=== PATIENT | female | born 1965 | race Caucasian/White ===

== ENCOUNTER 2023-07-29 17:22 | Inpatient (IN) | payer OTHER, SELFPAY ==
[2023-07-29] VITALS (10 sets, daily range): BP systolic 122–150; BP diastolic 84–88; PULSE 84–95; RESP 16–22; TEMP 36.9–38.8; O2SAT 94–100; BMI 22.3
--- NOTE | ~2023-07-29 | XR_ITS ---
EXAMINATION: XR chest 2V DATE: 07/30/2023 07:43 INDICATION: Pneumonia with cough and midsternal chest pain TECHNIQUE: PA and lateral views of the chest were obtained. COMPARISON: Chest radiograph dated 07/29/2023 FINDINGS: No significant change in patchy airspace opacities in the bilateral lower lungs. Very small right ple ural effusion. No pneumothorax. The cardiomediastinal silhouette is normal. Bilateral breast implants . IMPRESSION: 1. Persistent patchy airspace opacities in the bilateral lower lungs consistent with pneumonia. 2. Very small right pleural effusion. Reviewed, dictated and finalized at location [facility] [employer]
--- NOTE | 2023-07-29 17:51 | ECG_ITS ---
Measurements Intervals [place] Rate: 96 P: 78 GA: 120 QRS: 73 QRSD: 93 T: 72 QT: 314 QTc: 399 Interpretive Statements SINUS RHYTHM RSR' IN V1 OR V2, PROBABLY NORMAL VARIANT DELAYED PRECORDIAL R/S TRANSITION BASELINE ARTIFACT- I, II, III, AVR, AVL, AVF, V4 BORDERLINE ECG NO PREVIOUS ECG AVAILABLE FOR COMPARISON Electronically Signed On 07-29-2023 19:14:55 EMERGENCY ROOM TECH by Alon Easton D.O.
[2023-07-29] MEDS: IPRATROPIUM 0.5 MG/ALBUTEROL SULFATE 2.5 MG AMPUL.NEB 3 ML INHALATION (17:59)
[2023-07-29 18:24] LABS: Basophils Absolute Auto 0.07 K/mm3 (0.00-0.10); Basophils Percent Auto 0.4 % (0.0-1.0); Eosinophils Absolute Auto 0.18 K/mm3 (0.02-0.50); Eosinophils Percent Auto 0.9 % (1.0-6.0); Hematocrit 40.3 % (35.0-49.0); Hemoglobin 13.2 g/dL (12.0-15.0); Immature Granulocyte Absolute 0.44 K/mm3 (0.00-0.00); Immature Granulocyte Percent A 2.2 % (0.0-0.0); Lymphocytes Absolute Auto 1.96 K/mm3 (1.10-4.50); Lymphocytes Percent Auto 9.8 % (18.0-42.0); Mean Corpuscular HGB Conc 32.8 g/dL (32.0-36.0); Mean Corpuscular Hemoglobin 31.4 pg (27.0-31.0); Monocytes Absolute Auto 1.13 K/mm3 (0.10-0.90); Monocytes Percent Auto 5.7 % (2.0-11.0); Neutrophils Absolute Auto 16.1 K/mm3 (1.7-7.2); Platelet Count Result 336 K/mm3 (150-420); Red Cell Distribution Width 11.9 % (11.6-14.4); White Blood Count 19.9 K/mm3 (4.8-10.8)
[2023-07-29] MEDS: SODIUM CHLORIDE 0.9% IV 1,000 ML 999 ML IV CONT (18:36)
[2023-07-29] MEDS: ACETAMINOPHEN 500 MG TABLET 1000 MG PO (18:36)
[2023-07-29 18:41] LABS: Partial Thromboplastin Time 32.9 SEC (23.90-30.70); Prothrombin Time 10.9 Seconds (9.50-12.10)
[2023-07-29 18:44] LABS: Alanine Aminotransferase 62 U/L (14-59); Alkaline Phosphatase 96 U/L (46-116); Anion Gap 12 mmol/L (8-16); Aspartate Amino Transferase 36 U/L (15-37); Bilirubin,Total 0.4 mg/dL (0.00-1.00); Blood Urea Nitrogen 18 mg/dL (7-18); Carbon Dioxide 26 mmol/L (21-32); Chloride 98 mmol/L (98-108); Estimated CRCL calculation 63 ml/min; Estimated Glomerular Filt Rate > 60; Glucose 104 mg/dL (70-99); Magnesium 1.8 mg/dL (1.8-2.4); Osmolality Calculated 283 mOsm/kg (285-295); Potassium 3.7 mmol/L (3.5-5.1); Sodium 136 mmol/L (136-145); Total Protein 7.8 g/dL (6.4-8.2)
[2023-07-29 18:49] LABS: Lactic Acid Reflex 1.9 mmol/L (0.4-2.0)
[2023-07-29 19:02] LABS: CRP > 25.0 mg/dL (0.0-0.9)
--- NOTE | 2023-07-29 19:02 | ED.URI ---
HPI - URI/Sore Throat General Chief Complaint: Upper Respiratory Infection Stated Complaint: pneumonia Time Seen by Provider: 07/29/23 17:42 Source: patient and family Mode of arrival: ambulatory Limitations: no limitations History of Present Illness HPI Narrative: this is a 58-year-old with history of hypothyroidism and asthma that was seen earlier today by her primary and had a chest x-ray performed which showed patchy infiltrates consistent with pneumonia patient, has been having cough congestion shortness breath does have inhalers at home but had no relief from her inhalers and was told by her primary that she should present herself to the emergency department. Patient has congestion cough and shortness of breath with currently no fevers, no nausea vomiting no chest pain no abdominal pain no flank pain no dysuria. MD elicited complaint: fever and cough Onset (ago): hour(s) Consistency: constant Severity: severe Related Data Allergies Allergy/AdvReac Type Severity Reaction Status Date / Time No Known Allergies Allergy Unverified 07/29/23 17:38 Review of Systems Review of Systems: All systems reviewed & are unremarkable except as noted in HPI and below PMFSH Past Medical History Medical History Thyroid disease Surgical History Surgical History H/O: hysterectomy Family History Family History Father Hypertension Social History Social History Smoking status: Former smoker Tobacco type: cigarettes Alcohol intake: current Alcohol use details: social Substance use: never Substance use type: does not use Lack of Transportation: No Lack of Food: Never True Current Housing: I Have Housing Concerned About Future Housing: No Difficulty Paying Gas/Electric Bills: No Difficulty Paying for Meds: No Currently Unemployed: No Difficulty w/ Childcare or Family Care: No Living arrangements: with family Occupation/Education: occupation Gender identity (if verbalized by the patient): Female Exam Const: General: ill appearing Nutritional Appearance: thin Orientation/consciousness: patient oriented x3 Limitations: no limitations HENMT: Head: normal to inspection Eyes: Conjunctivae: conjunctivae normal Pupils: Equal, round and reactive pupils present Neck: Neck: normal visual inspection, no lymphadenopathy and no meningeal signs Chest: Chest palpation & inspection: normal inspection of the chest Resp: Effort & Inspection: normal respiratory effort Auscultation: rhonchi and diminished lung sounds Cardio: Rate: regular rate Rhythm: regular rhythm GI: GI Palp: Yes Soft to palpation Auscultation: normal bowel sounds Skin: General skin exam: normal color Rashes: no rashes Psych: Mental Status: mental status grossly normal Course Course Emergency Course: Patient had x-ray performed earlier today consistent with pneumonia blood work showed a elevated white blood cell count, patient received a DuoNeb, and started on ceftriaxone and azithromycin. Patient is satting at 100% on room air. Vital Signs Vital signs: Vital Signs Temperature 36.9 C 07/29/23 17:30 Pulse Rate 84 07/29/23 17:30 Respiratory Rate 16 07/29/23 17:30 Blood Pressure 150/86 H 07/29/23 17:30 Pulse Oximetry 100 07/29/23 17:30 Oxygen Delivery Room Air 07/29/23 17:30 Temperature 36.9 C 07/29/23 17:30 Pulse Rate 88 07/29/23 18:08 Respiratory Rate 22 H 07/29/23 18:08 Blood Pressure 150/86 H 07/29/23 17:30 Pulse Oximetry 100 07/29/23 18:08 Oxygen Delivery Room Air 07/29/23 17:30 MDM - URI/Sore Throat Lab Data 07/29/23 18:09 07/29/23 18:09 Labs: Lab Results 07/29/23 Range/Units 18:09 WBC 19.9 H (4.8-10.8)
[2023-07-29 19:13] LABS: Influenza A QL RT-PCR Negative (Negative); Influenza B QL RT-PCR Negative (Negative); RSV RNA, RT-PCR Positive (Negative); SARS-CoV-2 RNA PCR Negative (Negative)
[2023-07-29] MEDS: AZITHROMYCIN 500 MG/NS 250 ML 500 MG/250 ML BAG 250 MG IVPB (19:18)
[2023-07-29] MEDS: MORPHINE SULFATE (*CRX) 2 MG/ML INJ IV PUSH (19:41)
--- NOTE | 2023-07-29 20:08 | PC.NURSE ---
Pt resting, lights dimmed, VSS. Pt to go to Rm 209.
[2023-07-29] MEDS: SODIUM CHLORIDE 0.9% IV 1,000 ML 100 ML IV CONT (21:09)
[2023-07-29] MEDS: BENZONATATE 100 MG CAPSULE PO (22:19)
--- NOTE | 2023-07-29 23:53 | ADMGEN ---
This patient, Renee Noble, was admitted to 2nd Floor Room 209-1 at 2100. Patient/family oriented to hospital policies and general routines including ID bracelet, bed and alarms, pain management, procedures, bathroom and other care routines, personal items, smoking policy, room service/diet, and visiting hours. Information on how to activate the Rapid Response Team has been discussed. Patient/Family are encouraged to report perceived risks to care and to ask questions if they do not understand what they are told or what they should do.
[2023-07-30] VITALS (10 sets, daily range): BP systolic 135–153; BP diastolic 83–99; PULSE 76–101; RESP 16–22; TEMP 36.5–37.4; O2SAT 88–99
[2023-07-30] MEDS: MORPHINE SULFATE (*CRX) 2 MG/ML INJ IV PUSH (00:15)
[2023-07-30] MEDS: IPRATROPIUM 0.5 MG/ALBUTEROL SULFATE 2.5 MG AMPUL.NEB 3 ML INHALATION ×3 (03:07→18:39)
[2023-07-30] MEDS: ACETAMINOPHEN 325 MG TABLET 650 MG PO ×3 (03:19→21:26)
[2023-07-30 05:48] LABS: Hemoglobin 11.4 g/dL (12.0-15.0); Mean Corpuscular HGB Conc 32.6 g/dL (32.0-36.0); Mean Corpuscular Hemoglobin 31.1 pg (27.0-31.0); Mean Corpuscular Volume 95.4 fL (78.0-102.0); Mean Platelet Volume 9.1 fl (9.2-11.8); Platelet Count Result 275 K/mm3 (150-420); Red Blood Count 3.67 M/mm3 (4.20-5.40); Red Cell Distribution Width 11.9 % (11.6-14.4)
[2023-07-30 06:05] LABS: Alanine Aminotransferase 40 U/L (14-59); Albumin Level 2.3 g/dL (3.4-5.0); Alkaline Phosphatase 71 U/L (46-116); Anion Gap 10 mmol/L (8-16); Aspartate Amino Transferase 20 U/L (15-37); Bilirubin,Total 0.4 mg/dL (0.00-1.00); Blood Urea Nitrogen 9 mg/dL (7-18); Calcium 8.3 mg/dL (8.5-10.1); Carbon Dioxide 25 mmol/L (21-32); Chloride 102 mmol/L (98-108); Estimated CRCL calculation 74 ml/min; Estimated Glomerular Filt Rate > 60; Glucose 97 mg/dL (70-99); Osmolality Calculated 282 mOsm/kg (285-295); Potassium 3.3 mmol/L (3.5-5.1); Sodium 137 mmol/L (136-145); Total Protein 6.3 g/dL (6.4-8.2)
[2023-07-30 06:06] LABS: CRP 24.2 mg/dL (0.0-0.9)
[2023-07-30 06:12] LABS: Band Neutrophils Percent 0 % (0-6); Eosinophils Absolute Manual 0.21 K/mm3 (0.02-0.5); Eosinophils Percent Manual 1 % (1-6); Lymphocytes Percent Manual 10 % (18-44); Monocytes Absolute Manual 0.84 K/mm3 (0.1-0.90); Monocytes Percent Manual 4 % (3-9); Neutrophils Absolute Manual 17.85 K/mm3 (1.7-7.2); Neutrophils Percent Manual 85 % (46-73); Platelet Estimate Adequate (Adequate); Total Cells Counted 100
[2023-07-30] MEDS: SODIUM CHLORIDE 0.9% IV 1,000 ML 100 ML IV CONT ×2 (07:34→18:21)
--- NOTE | 2023-07-30 08:31 | PM.IMHP ---
H&P: HPI History of Present Illness Date/Time: 07/30/23 08:31 Chief Complaint: Pneumonia, Bronchitis ,RSV Narrative: This is a 58 year old female that has been sick since July 19 she was diagnosis with RSV and continued to not improve. Patient has been to the emergency room and order medication steroids and cough medication with antibiotic and did not improve. She was seen by her primary care provider and she continued to not improve. Patient has a past medical history Asthma, a ileostomy, COPD, Treatment that has been initiated is IV antibiotic, IV Steroids, cough medication and breathing treatment, We have ordered sputum culture with routine.Patient was WBC is 21 K we will continue to monitor. Travon thas been started on oxygen and she continues to go into coughing episodes and she is mentally and physically exhausted. Patient complains of rib pain due to the coughing spells. Patient labs we will continue to monitor and treat electrolyte imbalances. Review of Systems Review of Systems: coughing, rib pain, hypoxia All systems reviewed & are unremarkable except as noted in HPI and below PMFSH Past Medical History Medical History (Updated 07/31/23 @ 13:45 by Austen Rosas APRN) Asthma Ileostomy present Thyroid disease Surgical History Surgical History H/O: hysterectomy Family History Family History (Updated 07/29/23 @ 21:41 by Cathi Flores RN) Father No problems noted. Mother Hypertension Social History Social History Smoking packs per day: 0.75 Smoking cigarettes per day: 15.0 Years smoked: 7 Smoking pack-years: 5.25 Smoking status: Former smoker Tobacco type: cigarettes Alcohol intake: current Drinks per week: 1 Alcohol use details: social Substance use: never Substance use type: does not use Do You Feel Safe in your Home?: Yes Lack of Transportation: No Lack of Food: Never True Current Housing: I Have Housing Concerned About Future Housing: No Difficulty Paying Gas/Electric Bills: No Difficulty Paying for Meds: No Currently Unemployed: No Education: High School Diploma/GED Difficulty w/ Childcare or Family Care: No Living arrangements: with family Occupation/Education: occupation Gender identity (if verbalized by the patient): Female Spiritual care concerns: No Meds Home Medications and Allergies Home Medications Medication Instructions Recorded Confirmed Type thyroid (pork) 15 mg tablet 15 mg PO DAILY #90 tabs 05/08/22 07/29/23 Rx ([place] Thyroid) azithromycin 250 mg tablet 250 mg PO DAILY #4 tabs 08/02/23 Rx (Zithromax) benzonatate 100 mg capsule 200 mg PO TID PRN cough #30 caps 08/02/23 Rx guaifenesin 100 mg/5 mL oral liquid 100 mg (5 mL) PO Q4H PRN cough 08/02/23 Rx #100 mL ipratropium 0.5 mg-albuterol 3 mg 3 ml inhalation Q6HRT PRN wheezing 08/02/23 Rx (2.5 mg base)/3 mL nebulization #90 mL soln prednisone 10 mg tablet 10 mg PO DIRECTED #39 tabs 08/02/23 Rx Allergies Allergy/AdvReac Type Severity Reaction Status Date / Time No Known Allergies Allergy Unverified 07/29/23 17:38 Vital Signs Vital Signs - 24 hr 07/29/23 17:30 07/29/23 18:00 07/29/23 18:08 Temperature 98.5 F Pulse Rate 84 86 88 Respiratory Rate 16 18 22 H Blood Pressure 150/86 H Pulse Oximetry 100 96 100 Oxygen Delivery Room Air 07/29/23 19:24 07/29/23 19:00 07/29/23 19:43 Temperature 101.9 F H Pulse Rate 95 95 Respiratory Rate 22 H 20 Blood Pressure 138/87 141/85 H Pulse Oximetry 96 96 96 Oxygen Delivery Room Air Room Air Room Air 07/29/23 20:08 07/29/23 20:45 07/29/23 21:00 Temperature 101 F H Pulse Rate 85 92 90 Respiratory Rate 20 18 16 Blood Pressure 126/85 122/84 Pulse Oximetry 95 94 94 Oxygen Delivery Room Air Room Air Room Air 07/29/23 21:30
[2023-07-30] MEDS: BENZONATATE 100 MG CAPSULE PO ×3 (08:37→17:15)
[2023-07-30] MEDS: IPRATROPIUM 0.5 MG/ALBUTEROL SULFATE 2.5 MG AMPUL.NEB 3 ML (08:58)
[2023-07-30] MEDS: KETOROLAC 30 MG/ML VIAL (*BKC) IV PUSH ×2 (09:05→15:25)
[2023-07-30] MEDS: methylPREDNISolone SOD SUCC 125 MG VIAL 60 MG IV PUSH (09:05)
[2023-07-30] MEDS: guaiFENesin/CODEINE 100/10 MG 5 ML SYRUP 10 ML PO ×2 (15:27→21:36)
[2023-07-30] MEDS: AZITHROMYCIN 500 MG/NS 250 ML 500 MG/250 ML BAG 250 MG IVPB (18:21)
[2023-07-31] VITALS (9 sets, daily range): BP systolic 141–149; BP diastolic 90–94; PULSE 70–86; RESP 16–99; TEMP 36.3–36.8; O2SAT 95–99
[2023-07-31] MEDS: IPRATROPIUM 0.5 MG/ALBUTEROL SULFATE 2.5 MG AMPUL.NEB 3 ML INHALATION ×4 (00:09→18:39)
[2023-07-31] MEDS: guaiFENesin/CODEINE 100/10 MG 5 ML SYRUP 10 ML PO ×2 (05:16→09:46)
[2023-07-31] MEDS: SODIUM CHLORIDE 0.9% IV 1,000 ML 100 ML IV CONT (05:17)
[2023-07-31] MEDS: THYROID 30 MG TABLET 15 MG PO (07:47)
[2023-07-31] MEDS: BENZONATATE 100 MG CAPSULE PO (08:21)
[2023-07-31] MEDS: methylPREDNISolone SOD SUCC 40 MG VIAL IV PUSH (08:21)
[2023-07-31 09:18] LABS: Basophils Absolute Auto 0.03 K/mm3 (0.00-0.10); Basophils Percent Auto 0.2 % (0.0-1.0); Eosinophils Absolute Auto 0.03 K/mm3 (0.02-0.50); Eosinophils Percent Auto 0.2 % (1.0-6.0); Hematocrit 32.8 % (35.0-49.0); Hemoglobin 10.8 g/dL (12.0-15.0); Immature Granulocyte Absolute 0.48 K/mm3 (0.00-0.00); Immature Granulocyte Percent A 2.5 % (0.0-0.0); Lymphocytes Absolute Auto 2.84 K/mm3 (1.10-4.50); Lymphocytes Percent Auto 14.6 % (18.0-42.0); Mean Corpuscular HGB Conc 32.9 g/dL (32.0-36.0); Mean Corpuscular Hemoglobin 31.5 pg (27.0-31.0); Mean Corpuscular Volume 95.6 fL (78.0-102.0); Mean Platelet Volume 8.9 fl (9.2-11.8); Monocytes Absolute Auto 1.09 K/mm3 (0.10-0.90); Monocytes Percent Auto 5.6 % (2.0-11.0); Neutrophils Percent Auto 76.9 % (50.0-70.0); Platelet Count Result 312 K/mm3 (150-420); Red Blood Count 3.43 M/mm3 (4.20-5.40); Red Cell Distribution Width 12.1 % (11.6-14.4); White Blood Count 19.5 K/mm3 (4.8-10.8)
[2023-07-31 09:39] LABS: Alanine Aminotransferase 34 U/L (14-59); Albumin Level 2.7 g/dL (3.4-5.0); Alkaline Phosphatase 64 U/L (46-116); Anion Gap 12 mmol/L (8-16); Aspartate Amino Transferase 16 U/L (15-37); Bilirubin,Total 0.2 mg/dL (0.00-1.00); Blood Urea Nitrogen 6 mg/dL (7-18); Calcium 8.7 mg/dL (8.5-10.1); Carbon Dioxide 24 mmol/L (21-32); Chloride 104 mmol/L (98-108); Estimated CRCL calculation 67 ml/min; Estimated Glomerular Filt Rate > 60; Glucose 88 mg/dL (70-99); Osmolality Calculated 286 mOsm/kg (285-295); Potassium 3.4 mmol/L (3.5-5.1); Sodium 140 mmol/L (136-145); Total Protein 6.7 g/dL (6.4-8.2)
[2023-07-31] MEDS: KETOROLAC 30 MG/ML VIAL (*BKC) IV PUSH (09:43)
[2023-07-31 09:44] LABS: CRP 15.8 mg/dL (0.0-0.9)
[2023-07-31] MEDS: POTASSIUM CHLORIDE 20 MEQ ER TABLET 40 MEQ PO (10:26)
--- NOTE | 2023-07-31 11:37 | PM.IMPN ---
Progress Note: A&P Assessment and Plan (1) RSV (acute bronchiolitis due to respiratory syncytial virus): Code(s): J21.0 - Acute bronchiolitis due to respiratory syncytial virus Status: Acute Assessment and Plan: severe cough and weakness worsening since July 19. Patient appeared dehydrated on admission. IV fluids have now been stopped as she is taking in adequate oral intake and appears to have been rehydrated. (2) Pneumonia: Qualifiers: Laterality: left Lung location: lower lobe of lung Pneumonia type: due to unspecified organism Qualified Code(s): J18.9 - Pneumonia, unspecified organism Code(s): J18.9 - Pneumonia, unspecified organism Status: Acute Assessment and Plan: Increase IV ceftriaxone to 2 g daily continue azithromycin had complete respiratory pathogen panel pneumococcal antigen and Legionella antigen. (3) Sepsis: Code(s): A41.9 - Sepsis, unspecified organism Status: Acute Assessment and Plan: Due to presence of pneumonia presumed to be bacterial superinfection after ongoing RSV with vital signs meeting SIRS criteria and white blood cell count over 21,000 yesterday patient meets sepsis criteria but not septic shock. (4) Asthma: Code(s): J45.909 - Unspecified asthma, uncomplicated Status: Acute Assessment and Plan: history of chronic asthma supposed to be on inhaled controller with steroid but has not been taking for over 3 years. Uses albuterol rescue inhaler multiple times per day home over the last 1 year. Bronchospastic cough noted likely due to RSV. No wheezing at rest but frequent coughing spasms noted. Patient is on IV steroid, scheduled nebulizer treatments. Will give IV magnesium 2 g over 15 minutes for smooth muscle relaxation to try to decrease bronchospastic cough. (5) Thyroid disease: Code(s): E07.9 - Disorder of thyroid, unspecified Status: Chronic Assessment and Plan: Continue [place] Thyroid (6) Ileostomy present: Code(s): Z93.2 - Ileostomy status Status: Chronic Assessment and Plan: noted Time Spent With Patient Time with patient: Greater than 35 minutes Subjective Date/time seen: 07/31/23 11:37 Interval history: This is a 58-year-old female patient who has been positive for RSV with symptoms since around July 19. She has been continuing with ongoing severe cough as well as weakness exhaustion and signs of dehydration. Patient was seen in the ER at [facility] on July 22 was discharged home after RSV diagnosis. She saw her primary care provider in follow-up and PCP at attempted to directed mid her to the hospital but the hospital in [place] and in [facility] was full. At that time patient presented to our emergency department and was found to have white blood cell count near 20,000 and chest x-ray findings consistent with pneumonia. Patient was admitted on IV antibiotics IV steroids and IV fluids. Today patient continues to feel exhausted from constant cough. She reports she has a history of asthma has been needing to use her rescue inhaler multiple times a day for a the past year and a since she has been sick she has not been able to slow down her coughing for at least 2 weeks. Patient now complains significant headache and a pulled muscle in the right side of her neck from the persistent coughing. Patient reports she has ileostomy present due to problem with her colon years ago requiring full removal of colon and subsequent rectum removal as well. No complaints or concerns regarding this. Only home medications are for thyroid and albuterol rescue inhaler. Patient reports having a nebulize machine at home. Review of Systems Review of Systems: All systems reviewed & are unremarkable except as noted in HPI and below Exam Narrative: GENERAL: fatigue to-appearing, well-nourished, very frequent bronchospastic cough noted HEAD: Normocephalic,
[2023-07-31] MEDS: cefTRIAXone 2 GM/NS 100 ML 2 GM/100 ML BAG IVPB (12:01)
[2023-07-31] MEDS: BENZONATATE 100 MG CAPSULE 200 MG PO ×2 (12:01→16:42)
[2023-07-31] MEDS: CYCLOBENZAPRINE HCL 10 MG TABLET PO ×2 (12:04→21:14)
[2023-07-31] MEDS: MAGNESIUM SULF 2 GM/WATER 50ML 2 GM/50 ML BAG IVPB (12:30)
[2023-07-31] MEDS: AZITHROMYCIN 500 MG/NS 250 ML 500 MG/250 ML BAG 250 MG IVPB (18:40)
[2023-08-01] VITALS (9 sets, daily range): BP systolic 125–139; BP diastolic 82–89; PULSE 72–84; RESP 17–18; TEMP 36.6–36.8; O2SAT 94–98
[2023-08-01] MEDS: IPRATROPIUM 0.5 MG/ALBUTEROL SULFATE 2.5 MG AMPUL.NEB 3 ML INHALATION ×4 (00:38→18:55)
[2023-08-01] MEDS: guaiFENesin/CODEINE 100/10 MG 5 ML SYRUP 10 ML PO ×2 (04:32→20:55)
[2023-08-01] MEDS: ACETAMINOPHEN 325 MG TABLET 650 MG PO ×2 (04:39→21:00)
[2023-08-01 05:39] LABS: Basophils Absolute Auto 0.03 K/mm3 (0.00-0.10); Basophils Percent Auto 0.2 % (0.0-1.0); Eosinophils Absolute Auto 0.02 K/mm3 (0.02-0.50); Eosinophils Percent Auto 0.1 % (1.0-6.0); Hematocrit 32.3 % (35.0-49.0); Hemoglobin 10.6 g/dL (12.0-15.0); Immature Granulocyte Absolute 0.28 K/mm3 (0.00-0.00); Immature Granulocyte Percent A 1.9 % (0.0-0.0); Lymphocytes Absolute Auto 2.86 K/mm3 (1.10-4.50); Lymphocytes Percent Auto 19.2 % (18.0-42.0); Mean Corpuscular HGB Conc 32.8 g/dL (32.0-36.0); Mean Corpuscular Hemoglobin 31.4 pg (27.0-31.0); Mean Corpuscular Volume 95.6 fL (78.0-102.0); Mean Platelet Volume 9.2 fl (9.2-11.8); Monocytes Absolute Auto 0.82 K/mm3 (0.10-0.90); Monocytes Percent Auto 5.5 % (2.0-11.0); Neutrophils Absolute Auto 10.9 K/mm3 (1.7-7.2); Neutrophils Percent Auto 73.1 % (50.0-70.0); Platelet Count Result 300 K/mm3 (150-420); Red Blood Count 3.38 M/mm3 (4.20-5.40); Red Cell Distribution Width 12.2 % (11.6-14.4); White Blood Count 14.9 K/mm3 (4.8-10.8)
[2023-08-01 06:21] LABS: Alanine Aminotransferase 29 U/L (14-59); Albumin Level 2.6 g/dL (3.4-5.0); Alkaline Phosphatase 64 U/L (46-116); Anion Gap 11 mmol/L (8-16); Aspartate Amino Transferase 11 U/L (15-37); Bilirubin,Total 0.2 mg/dL (0.00-1.00); Blood Urea Nitrogen 6 mg/dL (7-18); CRP 8.7 mg/dL (0.0-0.9); Calcium 8.7 mg/dL (8.5-10.1); Carbon Dioxide 27 mmol/L (21-32); Chloride 101 mmol/L (98-108); Estimated CRCL calculation 72 ml/min; Estimated Glomerular Filt Rate > 60; Glucose 88 mg/dL (70-99); Magnesium 1.7 mg/dL (1.8-2.4); Osmolality Calculated 284 mOsm/kg (285-295); Potassium 3.6 mmol/L (3.5-5.1); Sodium 139 mmol/L (136-145); Total Protein 6.2 g/dL (6.4-8.2)
[2023-08-01] MEDS: methylPREDNISolone SOD SUCC 40 MG VIAL IV PUSH (07:58)
[2023-08-01] MEDS: THYROID 30 MG TABLET 15 MG PO (07:58)
[2023-08-01] MEDS: BENZONATATE 100 MG CAPSULE 200 MG PO ×3 (07:58→16:50)
--- NOTE | 2023-08-01 10:51 | PM.IMPN ---
Progress Note: A&P Assessment and Plan (1) RSV (acute bronchiolitis due to respiratory syncytial virus): Code(s): J21.0 - Acute bronchiolitis due to respiratory syncytial virus Status: Acute Assessment and Plan: severe cough and weakness worsening since July 19. Patient appeared dehydrated on admission. IV fluids have now been stopped as she is taking in adequate oral intake and appears to have been rehydrated. (2) Pneumonia: Qualifiers: Laterality: left Lung location: lower lobe of lung Pneumonia type: due to unspecified organism Qualified Code(s): J18.9 - Pneumonia, unspecified organism Code(s): J18.9 - Pneumonia, unspecified organism Status: Acute Assessment and Plan: Increase IV ceftriaxone to 2 g daily continue azithromycin had complete respiratory pathogen panel pneumococcal antigen and Legionella antigen. (3) Sepsis: Code(s): A41.9 - Sepsis, unspecified organism Status: Acute Assessment and Plan: Due to presence of pneumonia presumed to be bacterial superinfection after ongoing RSV with vital signs meeting SIRS criteria and white blood cell count over 21,000 yesterday patient meets sepsis criteria but not septic shock. (4) Asthma: Code(s): J45.909 - Unspecified asthma, uncomplicated Status: Acute Assessment and Plan: history of chronic asthma supposed to be on inhaled controller with steroid but has not been taking for over 3 years. Uses albuterol rescue inhaler multiple times per day home over the last 1 year. Bronchospastic cough noted likely due to RSV. No wheezing at rest but frequent coughing spasms noted. Patient is on IV steroid, scheduled nebulizer treatments. Will give IV magnesium 2 g over 15 minutes for smooth muscle relaxation to try to decrease bronchospastic cough. (5) Thyroid disease: Code(s): E07.9 - Disorder of thyroid, unspecified Status: Chronic Assessment and Plan: Continue [place] Thyroid (6) Ileostomy present: Code(s): Z93.2 - Ileostomy status Status: Chronic Assessment and Plan: noted Subjective Date/time seen: 08/01/23 10:51 Interval history: Patient states she is feeling better and is ready to go home soon. I inform patient she will go home in the morning. Patient is coughing although WBC are down and she is looking a lot better. Patient has remained afebrile and she is able to get out of the bed althugh once up she get tired easily. Mrs. Noble is still not sleeping as well but doing better than when she arrived. Patient currently is no longer requiring oxygen use. Exam Narrative: GENERAL: well-appearing, well-nourished, very frequent bronchospastic cough noted HEAD: Normocephalic, atraumatic. ENT:? Mucous membranes moist. CHEST: Clear to auscultation at rest, bronchospastic cough noted HEART: Regular rate and rhythm. ? Normal peripheral pulses. ABDOMEN: Soft, nontender, nondistended. ileostomy in place with stool drainage. EXTREMITIES: Normal range of motion. No peripheral edema. SKIN: Warm dry normal color NEURO: Alert and oriented x3. PSYCH: Normal mood and affect Objective Data Vital Signs Vital Signs: Vital Signs - 24 hr 07/31/23 16:00 07/31/23 18:43 07/31/23 18:49 Temperature 98.3 F Pulse Rate 70 86 86 Respiratory Rate 18 18 18 Blood Pressure 146/94 H Pulse Oximetry 96 95 98 Oxygen Delivery Room Air 08/01/23 00:40 08/01/23 00:45 08/01/23 00:00 Temperature 98.2 F Pulse Rate 84 74 72 Respiratory Rate 18 18 18 Blood Pressure 134/82 Pulse Oximetry 98 98 95 Oxygen Delivery Room Air 08/01/23 05:48 08/01/23 05:52 08/01/23 08:00 Temperature 97.9 F Pulse Rate 81 74 82 Respiratory Rate 18 18 17 Blood Pressure 125/85 Pulse Oximetry 95 98 94 Oxygen Delivery Room Air Intake/Output Intake/Output: Intake & Output 07/29/23 07/30/23 07/31/23 08/01/23 23:59 23:59 23:59 23:59 Intake [place]
[2023-08-01] MEDS: AZITHROMYCIN 250 MG TABLET PO (13:10)
[2023-08-02] VITALS: BP 128/85; PULSE 80; RESP 16; TEMP 36.4; O2SAT 95
[2023-08-02 00:41] VITALS: PULSE 78; RESP 18; O2SAT 96
[2023-08-02] MEDS: IPRATROPIUM 0.5 MG/ALBUTEROL SULFATE 2.5 MG AMPUL.NEB 3 ML INHALATION ×2 (00:41→05:14)
[2023-08-02 00:49] VITALS: PULSE 80; RESP 18; O2SAT 99
[2023-08-02 05:15] VITALS: PULSE 79; RESP 18; O2SAT 97
[2023-08-02 05:26] VITALS: PULSE 79; RESP 18; O2SAT 99
[2023-08-02] MEDS: THYROID 30 MG TABLET 15 MG PO (05:32)
[2023-08-02 05:56] LABS: Alanine Aminotransferase 25 U/L (14-59); Albumin Level 2.6 g/dL (3.4-5.0); Alkaline Phosphatase 51 U/L (46-116); Anion Gap 10 mmol/L (8-16); Aspartate Amino Transferase 11 U/L (15-37); Bilirubin,Total 0.4 mg/dL (0.00-1.00); Blood Urea Nitrogen 9 mg/dL (7-18); CRP 5.4 mg/dL (0.0-0.9); Calcium 7.9 mg/dL (8.5-10.1); Carbon Dioxide 29 mmol/L (21-32); Chloride 98 mmol/L (98-108); Estimated CRCL calculation 71 ml/min; Estimated Glomerular Filt Rate > 60; Glucose 83 mg/dL (70-99); Magnesium 1.7 mg/dL (1.8-2.4); Osmolality Calculated 281 mOsm/kg (285-295); Potassium 3.6 mmol/L (3.5-5.1); Sodium 137 mmol/L (136-145)
[2023-08-02 06:05] LABS: Basophils Absolute Auto 0.02 K/mm3 (0.00-0.10); Basophils Percent Auto 0.2 % (0.0-1.0); Eosinophils Absolute Auto 0.02 K/mm3 (0.02-0.50); Eosinophils Percent Auto 0.2 % (1.0-6.0); Hemoglobin 10.8 g/dL (12.0-15.0); Immature Granulocyte Absolute 0.17 K/mm3 (0.00-0.00); Immature Granulocyte Percent A 1.7 % (0.0-0.0); Lymphocytes Absolute Auto 2.88 K/mm3 (1.10-4.50); Mean Corpuscular HGB Conc 32.7 g/dL (32.0-36.0); Mean Corpuscular Hemoglobin 31.5 pg (27.0-31.0); Mean Corpuscular Volume 96.2 fL (78.0-102.0); Mean Platelet Volume 9.2 fl (9.2-11.8); Monocytes Absolute Auto 0.86 K/mm3 (0.10-0.90); Monocytes Percent Auto 8.4 % (2.0-11.0); Neutrophils Absolute Auto 6.3 K/mm3 (1.7-7.2); Neutrophils Percent Auto 61.5 % (50.0-70.0); Platelet Count Result 288 K/mm3 (150-420); Red Blood Count 3.43 M/mm3 (4.20-5.40); Red Cell Distribution Width 12.1 % (11.6-14.4); White Blood Count 10.3 K/mm3 (4.8-10.8)
--- NOTE | 2023-08-02 07:24 | PM.DS ---
DS: Admitting Diagnosis Discharge Date 08/02/23 Admitting Diagnosis RSV, Pneumonia, Broncholitis DS: Discharge Diagnosis Discharge Diagnosis (1) RSV (acute bronchiolitis due to respiratory syncytial virus): Code(s): J21.0 - Acute bronchiolitis due to respiratory syncytial virus Status: Inactive Assessment and Plan: severe cough and weakness worsening since July 19. Patient appeared dehydrated on admission. IV fluids have now been stopped as she is taking in adequate oral intake and appears to have been rehydrated. (2) Pneumonia: Qualifiers: Laterality: left Lung location: lower lobe of lung Pneumonia type: due to unspecified organism Qualified Code(s): J18.9 - Pneumonia, unspecified organism Code(s): J18.9 - Pneumonia, unspecified organism Status: Inactive Assessment and Plan: Increase IV ceftriaxone to 2 g daily continue azithromycin had complete respiratory pathogen panel pneumococcal antigen and Legionella antigen. (3) Sepsis: Code(s): A41.9 - Sepsis, unspecified organism Status: Inactive Assessment and Plan: Due to presence of pneumonia presumed to be bacterial superinfection after ongoing RSV with vital signs meeting SIRS criteria and white blood cell count over 21,000 yesterday patient meets sepsis criteria but not septic shock. (4) Asthma: Code(s): J45.909 - Unspecified asthma, uncomplicated Status: Acute Assessment and Plan: history of chronic asthma supposed to be on inhaled controller with steroid but has not been taking for over 3 years. Uses albuterol rescue inhaler multiple times per day home over the last 1 year. Bronchospastic cough noted likely due to RSV. No wheezing at rest but frequent coughing spasms noted. Patient is on IV steroid, scheduled nebulizer treatments. Will give IV magnesium 2 g over 15 minutes for smooth muscle relaxation to try to decrease bronchospastic cough. (5) Thyroid disease: Code(s): E07.9 - Disorder of thyroid, unspecified Status: Chronic Assessment and Plan: Continue [place] Thyroid (6) Ileostomy present: Code(s): Z93.2 - Ileostomy status Status: Chronic Assessment and Plan: noted DS: Summary Hospital Course Reason for hospitalization: RSV, Pneumonia, Broncolitis Hospital Course: This is a 58 year old female that was admitted to the hospital as she had extensive shortness of breath requiring oxygen. According to Mrs. Noble she had been sick on her second round of antibiotic prior to her admission here. Mrs noble required oxygen, breathing treatment, IV antibiotics, IV steroids and some rest. Patient at one point was in some respiratory distress with some hoarseness noted. Patient remained on breathing treatment and steroid in which she will go home with. Patient was converted to oral antibiotics. Patient labs have trended down and we were able to wean her off oxygen and a walk study with Respiratory was completed and she did not require any home oxygen. Patient has a ileostomy that she cares for herself. Patient has remained afebrile and is eating and drinking without any difficulties. Time Spent with Patient Time attestation: Total time spent providing and/or coordinating discharge services: Exam Narrative: GENERAL: fatigue to-appearing, well-nourished, very frequent bronchospastic cough noted HEAD: Normocephalic, atraumatic. ENT:? Mucous membranes moist. CHEST: Clear to auscultation at rest, very frequent bronchospastic cough noted HEART: Regular rate and rhythm. ? Normal peripheral pulses. ABDOMEN: Soft, nontender, nondistended. ileostomy in place with stool drainage. EXTREMITIES: Normal range of motion. No peripheral edema. SKIN: Warm dry normal color NEURO: Alert and oriented x3. PSYCH: Normal mood and affect DS: Data Data Completed and Pending Labs on day of discharge: Labs from last 24 hours 08/02/23 04:55
[2023-08-02 08:00] VITALS: BP 144/95; PULSE 84; RESP 18; TEMP 36.8; O2SAT 95
[2023-08-02] MEDS: predniSONE 20 MG TABLET 40 MG PO (08:08)
[2023-08-02] MEDS: BENZONATATE 100 MG CAPSULE 200 MG PO (08:08)
[2023-08-02] MEDS: AZITHROMYCIN 250 MG TABLET PO (08:08)
--- NOTE | 2023-08-03 08:25 | PC.NURSE ---
Discharge call back attempted, no answer
[2023-08-04 19:31] LABS: Adenovirus DNA Not Detected (Not Detected); Chlamydophila pneumoniae Not Detected (Not Detected); Coronavirus 229E Not Detected (Not Detected); Coronavirus HKU1 Not Detected (Not Detected); Coronavirus NL63 Not Detected (Not Detected); Coronavirus OC43 Not Detected (Not Detected); Human Metapneumovirus Not Detected (Not Detected); Human Parainfluenza Virus 1 Not Detected (Not Detected); Human Parainfluenza Virus 2 Not Detected (Not Detected); Human Parainfluenza Virus 3 Not Detected (Not Detected); Human Parainfluenza Virus 4 Not Detected (Not Detected); Human RSV B Not Detected (Not Detected); Influenza A Not Detected (Not Detected); Influenza B Not Detected (Not Detected); Mycoplasma pneumoniae Not Detected (Not Detected); Rhinovirus/Enterovirus Not Detected (Not Detected)
--- NOTE | 2023-08-05 08:45 | PC.NURSE ---
Unable to contact patient, message left
[2023-08-05 22:49] LABS: Pneumococcal Antigen Urine Not Detected (Not Detected)
[2023-08-06 06:08] LABS: Legionella pneumophila Ag Ur Not Detected (Not Detected)
--- NOTE | 2023-08-06 09:30 | PC.NURSE ---
Spoke with Renee regarding her discharge, understood instructions, she is doing well, received good care
== END 2023-08-02 09:30 | disposition home or self-care (01) | DRG 871 ==
LOC: CHSED 19:06 → CHS2ND 20:13
PROVIDERS: Nurse Practitioner; Admitting Provider Internal Medicine; Emergency Provider Emergency Medicine; PCP Physician Assistant Medical; Visit Provider Internal Medicine
DX: A41.9 Sepsis, unspecified organism (principal); J18.9 Pneumonia, unspecified organism; J21.0 Acute bronchiolitis due to respiratory syncytial virus; J44.0 Chronic obstructive pulmonary disease with (acute) lower respiratory infection; E07.9 Disorder of thyroid, unspecified; Z93.2 Ileostomy status; Z87.891 Personal history of nicotine dependence
CPT/HCPCS: 36415; 71046; 80053; 83605; 83735; 85025; 85610; 85730; 86140; 87040; 87070; 87205; 87449; 87633; 87637; 87899; 93005; 94640; 96365; 96367; 96375; 99285; A9270; G0378; J0456; J0696; J1885; J2270; J2920; J2930; J3475; J7030; J7512

== ENCOUNTER 2024-04-10 08:06 | Outpatient (CLI) | payer OTHER, SELFPAY ==
--- NOTE | 2024-04-10 11:35 | WPDPFTINT ---
PFT Procedure Performed PFT Procedure Performed Spirometry with Pre/Post Bronchodilator Plethysmography (Lung Vol) Diffusing Cap (DLCO) Flow Vol Loop PFT Interpretation This is a pulmonary function test with pre and post-bronchodilator spirometry, plethysmography and diffusing capacity. The test was performed and results interpreted in accordance with the 2019 and 2005 ATS/ERS Task Force guidelines respectively using the Global Lung Function Initiative-2012 reference equations. Patient demonstrated good effort and cooperation. Reproducibility criteria were met. The quality of the pre bronchodilator spirometry maneuver was Grade B and post bronchodilator spirometry maneuver was Grade A. Findings: Spirometry: The contour the expiratory flow tracing is flattened. There is decreased maximal expiratory airflow at low lung volumes with a mildly concave expiratory flow tracing. The contour the inspiratory flow tracing is normal. The pre bronchodilator FVC is 3.75 L, 108% predicted. The pre bronchodilator FEV1 is 1.66 L, 61% predicted. The pre bronchodilator FEV1: FVC ratio is 44%. The post bronchodilator FVC is 3.40 L, representing a 9% decrease. The post bronchodilator FEV1 is 1.42 L, representing a 14% decrease. The post bronchodilator FEV1: FVC ratio is 42%. Plethysmography: The total lung capacity is 6.69 L, 122% predicted. The functional residual capacity is 4.45 L, 142% predicted. The residual volume is 2.94 L, 136% predicted. The residual volume: Total lung capacity ratio is 44%. Diffusing capacity: The diffusing capacity unadjusted for hemoglobin and carboxyhemoglobin is 23.6, 104% predicted. The diffusing capacity adjusted for alveolar volume with 4.95, 115% predicted. Impression: The contour the expiratory flow tracing is flattened and concave at low lung volume. this is consistent with an obstructive abnormality and or a variable intrathoracic obstruction that can be seen with tracheomalacia of the intrathoracic airway, intrathoracic bronchogenic cyst, malignant tracheal lesions and vocal fold abnormalities. Clinical correlation is recommended. There is a moderate obstructive abnormality. There is no significant improvement after inhaling a single dose of albuterol. The total lung capacity, functional residual capacity and residual volume are increased with a normal residual volume: Total lung capacity ratio. This is consistent with large lungs. The diffusing capacity is normal. There are no prior studies for comparison.
== END 2024-04-10 08:07 | disposition home or self-care (01) ==
LOC: ANHPFT 08:09
PROVIDERS: PCP Physician Assistant Medical; Visit Provider Nurse Practitioner Family
DX: R94.2 Abnormal results of pulmonary function studies (principal); R06.09 Other forms of dyspnea; R05.9 Cough, unspecified
CPT/HCPCS: 94060; 94726; 94729

== ENCOUNTER 2024-04-25 13:58 | Outpatient (CLI) | payer OTHER, SELFPAY ==
--- NOTE | ~2024-04-25 | CT_ITS ---
CT Scan of the Neck and Chest without Contrast: Clinical Indication: Abnormal results of pulmonary function studies Technique: Contiguous sections were acquired throughout the neck and chest without intravenous contra st. Dose reduction technique was used on this scan by utilizing automated exposure control and iterat maura reconstruction technique. The dose-length product (DLP) was 448.57 mGy-cm. Findings: No abnormal mass lesion or lymphadenopathy seen in the neck. No cystic mass or fluid collec tion seen. Parapharyngeal fat preserved bilaterally. Parotid and some mandibular glands are unremarka ble. Visualized aerodigestive tract unremarkable. Thyroid gland unremarkable. Paranasal sinuses and m astoid air cells are clear. Visual is orbits are unremarkable. There is no evidence of any significant mediastinal, hilar or axillary lymphadenopathy. The mediastin al soft tissues appear normal. There is no evidence of pleural or pericardial effusion. There is mild biapical scarring. 4 mm right lower lobe pulmonary nodule noted (series 4 image 86). Images through the upper abdomen reveal no abnormalities. Impression: 4 mm right lower lobe pulmonary nodule. According to Fleischner Society criteria, for a low-risk sarbjit ent, no further follow-up required. For a high-risk patient, consider 12 month follow-up CT. Mild biapical pulmonary scarring. No significant findings in the neck. Reviewed, dictated and finalized at location M. Impression: 4 mm right lower lobe pulmonary nodule. According to Fleischner Society criteri a, for a low-risk patient, no further follow-up required. For a high-risk patie nt, consider 12 month follow-up CT. Mild biapical pulmonary scarring. No significant findings in the neck.
== END 2024-04-25 13:59 | disposition home or self-care (01) ==
LOC: ANHIMG 14:00
PROVIDERS: PCP Physician Assistant Medical; Visit Provider Nurse Practitioner Family
DX: R94.2 Abnormal results of pulmonary function studies (principal); J44.9 Chronic obstructive pulmonary disease, unspecified
CPT/HCPCS: 70490; 71250